=== PATIENT | female | born 1935 ===

== ENCOUNTER 2022-03-15 11:01 | Inpatient (IN) | payer MEDICARE, OTHER ==
[~2022-03-15 11:01] MED LIST: Iopamidol 370 76% 100 ML VIAL ONE
[2022-03-15] MEDS ORDERED: Iopamidol-370 76% 500 ML 1 ML ONE (11:16)
[2022-03-15 11:21] LABS: #Eosinphils 0.2 thou/uL (0.0-0.7); #Lymphocytes 1.2 thou/uL (1.20-3.40); #Monocytes 0.5 thou/uL (0.11-0.59); #Neutrophils 4.6 thou/uL (1.40-6.50); %Basophils 0.7 % (0.0-1.0); %Eosinophils 3.5 % (0.0-10.0); %Lymphocytes 18.5 % (21.0-51.0); %Monocytes 7.4 % (0.0-10.0); %Neutrophils 69.9 % (42.0-75.0); Hemoglobin 12.2 g/dL (12.0-16.0); Mean Corpuscular HGB CONC 33.3 g/dL (32.0-36.0); Mean Corpuscular Hemoglobin 32.9 pg (27.0-31.0); Mean Corpuscular Volume 98.9 fl (78.0-98.0); Mean Platelet Volume 7.5 fL (7.4-10.4); Platelet Count 188 10x3/uL (130-400); RBC Distribution Width 12.2 % (11.5-14.5); Red Blood Cell (RBC) Count 3.72 mill/uL (4.20-5.40); White Blood Cell (WBC) Count 6.6 10x3/uL (4.8-10.8)
[2022-03-15] MEDS ORDERED: Propofol 1,000 MG/100 ML VIAL IV ONE ×2 (11:25→13:52)
[2022-03-15 11:33] LABS: PTT 27.5 sec (22.9-36.1); Prothrombin Time 13.5 sec (12.0-14.7)
[2022-03-15] MEDS ORDERED: Tenecteplase 50 MG ONE (11:45)
[2022-03-15 11:49] LABS: ALT (SGPT) 40 U/L (8-55); AST (SGOT) 61 U/L (5-34); Albumin 3.6 g/dL (3.4-4.8); Alkaline Phosphatase 94 U/L (40-110); Anion Gap 15 mmol/L (10-20); BUN (Urea Nitrogen) 20 mg/dL (9.8-20.1); Bilirubin, Total 0.5 mg/dL (0.2-1.2); Calc. Creatinine Clearance 0 mL/min (70-130); Calcium 9.2 mg/dL (7.8-10.44); Carbon Dioxide 19 mmol/L (23-31); Chloride 107 mmol/L (98-107); Estimated GFR 72; Globulin 2.6 g/dL (2.4-3.5); Glucose 102 mg/dL (83-110); Potassium 3.9 mmol/L (3.5-5.1); Protein, Total 6.2 g/dL (5.8-8.1); Sodium 137 mmol/L (136-145)
[2022-03-15] MEDS ORDERED: Heparin 10,000 UNITS/ 10 ML VIAL ONE (11:49)
[2022-03-15] MEDS ORDERED: Lidocaine 1% (PF) 30 ML VIAL ONE (11:49)
[2022-03-15 11:55] LABS: Actual Bicarbonate (HCO3a) 20.5 mEq/L (22-28); Analyzer IN Cardio ER; Base Excess (BEa) -2.9 mEq/L (-2.0 to +3.0); CO2 Tension 31.7 mmHg (35.0-45.0); Calcium, Ionized (arterial) 1.21 mmol/L (1.12-1.30); Carboxyhemoglobin (COHb) 0.3 gm% (0.0-3.0); Hemoglobin (Hb) 12.3 g/dL (12.0-16.0); O2 Tension (PaO2), arterial 222.3 mmHg (> 60.0); Potassium - ABG Lab 3.36 mmol/L (3.70-5.30); pH, Arterial 7.43 (7.35-7.45)
[2022-03-15 11:59] LABS: ALV-art Gradient 94.575 mmHg (0-20); Puncture Site RRA
[2022-03-15] MEDS ORDERED: SUGAMMADEX SODIUM 200 MG/2 ML VIAL ONE (12:08)
[2022-03-15] MEDS ORDERED: fentaNYL PF 100 MCG/2 ML SYRINGE ONE (12:08)
[2022-03-15] MEDS ORDERED: ePHEDrine 50 MG/ML VIAL ONE (12:37)
[2022-03-15] MEDS ORDERED: Ondansetron PF 4 MG/2 ML Vial ONE (12:37)
[2022-03-15] MEDS ORDERED: Rocuronium Bromide 10 MG/ML (10ML VIAL) ONE (12:37)
[2022-03-15] MEDS ORDERED: Acetaminophen 325 MG TAB PO PRN (13:28)
[2022-03-15] MEDS ORDERED: Labetalol HCl 100 MG/20 ML VIAL SLOW IVP PRN (13:28)
[2022-03-15] MEDS ORDERED: niCARdipine 25 MG in Sodium Chloride 0.9% 250 ML 250 ML IVPB PRN (13:28)
[2022-03-15] MEDS ORDERED: hydrALAZINE 20 MG/ML VIAL SLOW IVP PRN (13:28)
[2022-03-15] MEDS ORDERED: Promethazine HCl 25 MG/ML VIAL IM PRN (13:47)
[2022-03-15] MEDS ORDERED: Ondansetron HCl/PF 4 MG/2 ML Vial IVP PRN (13:47)
[2022-03-15] MEDS ORDERED: Ventilator Sedation Protocol 1 EACH FS SCH ×2 (13:47→14:33)
[2022-03-15 14:21] LABS: #Basophils 0.1 thou/uL (0.0-0.2); #Eosinphils 0.1 thou/uL (0.0-0.7); #Lymphocytes 1.3 thou/uL (1.20-3.40); #Monocytes 0.7 thou/uL (0.11-0.59); #Neutrophils 10.5 thou/uL (1.40-6.50); %Basophils 0.5 % (0.0-1.0); %Lymphocytes 10.5 % (21.0-51.0); %Monocytes 5.6 % (0.0-10.0); %Neutrophils 82.4 % (42.0-75.0); Hemoglobin 10.9 g/dL (12.0-16.0); Mean Corpuscular HGB CONC 33.3 g/dL (32.0-36.0); Mean Corpuscular Hemoglobin 32.5 pg (27.0-31.0); Mean Corpuscular Volume 97.7 fl (78.0-98.0); Mean Platelet Volume 7.1 fL (7.4-10.4); Platelet Count 195 10x3/uL (130-400); RBC Distribution Width 12.3 % (11.5-14.5); Red Blood Cell (RBC) Count 3.35 mill/uL (4.20-5.40); White Blood Cell (WBC) Count 12.8 10x3/uL (4.8-10.8)
[2022-03-15] MEDS ORDERED: Electrolyte Replacement Protocol 1 EACH FS ONE (14:33)
[2022-03-15 14:41] LABS: ALT (SGPT) 39 U/L (8-55); AST (SGOT) 50 U/L (5-34); Albumin 3.2 g/dL (3.4-4.8); Alkaline Phosphatase 83 U/L (40-110); Anion Gap 11 mmol/L (10-20); BUN (Urea Nitrogen) 17 mg/dL (9.8-20.1); Bilirubin, Total 0.5 mg/dL (0.2-1.2); Calc. Creatinine Clearance 0 mL/min (70-130); Calcium 8.5 mg/dL (7.8-10.44); Carbon Dioxide 19 mmol/L (23-31); Chloride 110 mmol/L (98-107); Estimated GFR 77; Globulin 2.2 g/dL (2.4-3.5); Glucose 120 mg/dL (83-110); Potassium 3.6 mmol/L (3.5-5.1); Protein, Total 5.4 g/dL (5.8-8.1); Sodium 136 mmol/L (136-145)
[2022-03-15] MEDS ORDERED: Acetaminophen 650 MG Suppository PR PRN (16:23)
[2022-03-15] MEDS ORDERED: Ondansetron PF 4 MG/2 ML Vial IVP PRN (16:23)
[2022-03-15] MEDS: Sodium Chloride 0.9% 1,000 ML IV SCH (17:05)
[2022-03-15] MEDS ORDERED: Electrolyte Replacement Protocol FS PRN (18:30)
[2022-03-15] MEDS ORDERED: Lorazepam 2 MG/ML VIAL SLOW IVP PRN (18:30)
[2022-03-15] MEDS ORDERED: Fentanyl CADD 100 ML IV SCH (18:30)
[2022-03-15] MEDS ORDERED: Propofol BOLUS 1,000 MG/100 ML VIAL IV PRN (18:30)
[2022-03-15] MEDS ORDERED: DISCONTINUE PREVIOUS NARCOTIC PAIN MEDICATIONS AND BENZODIAZEPINES FS SCH (18:30)
[2022-03-15] MEDS ORDERED: Morphine 2 MG/ML VIAL SLOW IVP PRN (18:30)
[2022-03-15] MEDS: Propofol 1,000 MG/100 ML VIAL IV PRN (19:35)
[2022-03-15] MEDS: Atorvastatin Calcium 40 MG TAB PO SCH (21:11)
[2022-03-15] MEDS: Communication Order-Pharmacy FS SCH (21:12)
[2022-03-15 22:07] LABS: SARS-CoV-2 NAA Rapid Test Not Detected (NotDetected)
[2022-03-16] MEDS: Sodium Chloride 0.9% 1,000 ML IV SCH ×2 (02:41→15:07)
[2022-03-16 04:11] LABS: #Basophils 0.1 thou/uL (0.0-0.2); #Eosinphils 0.1 thou/uL (0.0-0.7); #Lymphocytes 1.9 thou/uL (1.20-3.40); #Neutrophils 6.6 thou/uL (1.40-6.50); %Basophils 0.7 % (0.0-1.0); %Eosinophils 0.6 % (0.0-10.0); %Lymphocytes 19.5 % (21.0-51.0); %Monocytes 10.6 % (0.0-10.0); %Neutrophils 68.6 % (42.0-75.0); Hemoglobin 9.4 g/dL (12.0-16.0); Mean Corpuscular HGB CONC 34.5 g/dL (32.0-36.0); Mean Corpuscular Hemoglobin 34.1 pg (27.0-31.0); Mean Corpuscular Volume 98.7 fl (78.0-98.0); Mean Platelet Volume 7.3 fL (7.4-10.4); Platelet Count 198 10x3/uL (130-400); RBC Distribution Width 12.2 % (11.5-14.5); Red Blood Cell (RBC) Count 2.76 mill/uL (4.20-5.40); White Blood Cell (WBC) Count 9.6 10x3/uL (4.8-10.8)
[2022-03-16 04:32] LABS: Anion Gap 10 mmol/L (10-20); BUN (Urea Nitrogen) 17 mg/dL (9.8-20.1); Calc. Creatinine Clearance 71 mL/min (70-130); Calcium 8.4 mg/dL (7.8-10.44); Carbon Dioxide 20 mmol/L (23-31); Cardiac Risk 2.6 (Less than 4.5); Chloride 111 mmol/L (98-107); Cholesterol 110 mg/dl (< 200 Desired); Estimated GFR 82; Glucose 108 mg/dL (83-110); HDL Cholesterol 42 mg/dL (>60 Neg Risk); LDL Cholesterol, Calculated 53 mg/dL; Potassium 3.6 mmol/L (3.5-5.1); Sodium 137 mmol/L (136-145); Triglycerides 76 mg/dL (Less than 150)
[2022-03-16 06:58] LABS: Actual Bicarbonate (HCO3a) 18.9 mEq/L (22-28); CO2 Tension 27.2 mmHg (35.0-45.0); Calcium, Ionized (arterial) 1.12 mmol/L (1.12-1.30); Carboxyhemoglobin (COHb) 0.3 gm% (0.0-3.0); Hemoglobin (Hb) 9.5 g/dL (12.0-16.0); O2 Tension (PaO2), arterial 136.1 mmHg (> 60.0); Potassium - ABG Lab 3.33 mmol/L (3.70-5.30); pH, Arterial 7.46 (7.35-7.45)
[2022-03-16] MEDS: Propofol 1,000 MG/100 ML VIAL IV PRN (07:25)
[2022-03-16 07:33] LABS: Puncture Site LRA
[2022-03-16] MEDS: Pantoprazole 40 MG VIAL IVP SCH (08:19)
[2022-03-16 11:23] LABS: Bacteria/HPF None Seen HPF (None Seen); Bilirubin Negative (Negative); Blood, Urine Negative (Negative); Clarity Clear (Clear); Glucose, Urine (Dipstick) Normal (Negative); Ketone, Urine Trace mg/dL (Negative); Leukocyte Negative Leu/uL (Negative); Nitrite Negative (Negative); Protein, Urine (Dipstick) 30 mg/dL (Neg-Trace); RBC/HPF 0-3 HPF (0-3); Specific Gravity, Urine 1.044 (1.002-1.036); Squamous Epithelial 0-3 HPF (0-3); Urobilinogen Normal mg/dL (Less than 2); WBC/HPF 0-3 HPF (0-3)
[2022-03-16] MEDS: Communication Order-Pharmacy FS SCH (15:07)
[2022-03-16] MEDS: Atorvastatin Calcium 40 MG TAB PO SCH (21:17)
[2022-03-16] MEDS: Aspirin 325 mg Enteric Coated Tablet PO SCH (21:17)
[2022-03-16] MEDS: Aspirin 300 MG Suppository PR SCH (21:21)
[2022-03-17] MEDS: Sodium Chloride 0.9% 1,000 ML IV SCH ×2 (03:02→16:18)
[2022-03-17 05:04] LABS: #Basophils 0.1 thou/uL (0.0-0.2); #Eosinphils 0.1 thou/uL (0.0-0.7); #Monocytes 0.7 thou/uL (0.11-0.59); #Neutrophils 4.7 thou/uL (1.40-6.50); %Basophils 0.9 % (0.0-1.0); %Eosinophils 1.5 % (0.0-10.0); %Lymphocytes 26.4 % (21.0-51.0); %Monocytes 9.2 % (0.0-10.0); Hemoglobin 7.5 g/dL (12.0-16.0); Mean Corpuscular HGB CONC 34.9 g/dL (32.0-36.0); Mean Corpuscular Hemoglobin 34.3 pg (27.0-31.0); Mean Corpuscular Volume 98.2 fl (78.0-98.0); Mean Platelet Volume 7.6 fL (7.4-10.4); Platelet Count 148 10x3/uL (130-400); RBC Distribution Width 12.3 % (11.5-14.5); White Blood Cell (WBC) Count 7.5 10x3/uL (4.8-10.8)
[2022-03-17 05:31] LABS: ALT (SGPT) 26 U/L (8-55); AST (SGOT) 26 U/L (5-34); Albumin 2.4 g/dL (3.4-4.8); Alkaline Phosphatase 68 U/L (40-110); Anion Gap 8 mmol/L (10-20); BUN (Urea Nitrogen) 11 mg/dL (9.8-20.1); Bilirubin, Total 0.5 mg/dL (0.2-1.2); Calc. Creatinine Clearance 77 mL/min (70-130); Carbon Dioxide 21 mmol/L (23-31); Chloride 112 mmol/L (98-107); Estimated GFR 85; Glucose 86 mg/dL (83-110); Potassium 3.3 mmol/L (3.5-5.1); Protein, Total 4.4 g/dL (5.8-8.1); Sodium 138 mmol/L (136-145)
[2022-03-17] MEDS ORDERED: Potassium Chloride 20 MEQ TAB PO SCH (08:00)
[2022-03-17] MEDS: Pantoprazole 40 MG VIAL IVP SCH (09:44)
[2022-03-17] MEDS ORDERED: Potassium Chloride 40 MEQ in Premix Bag 1 BAG IVPB SCH (09:45)
[2022-03-17] MEDS: Albumin 25% 25 GM/100 ML BOT IVPB SCH ×3 (10:55→23:02)
[2022-03-17] MEDS: Atorvastatin Calcium 40 MG TAB PO SCH (22:22)
[2022-03-17] MEDS: Aspirin 325 mg Enteric Coated Tablet PO SCH (22:22)
[2022-03-18] MEDS: Aspirin 300 MG Suppository PR SCH (03:15)
[2022-03-18] MEDS: Albumin 25% 25 GM/100 ML BOT IVPB SCH (05:47)
[2022-03-18] MEDS: Sodium Chloride 0.9% 1,000 ML IV SCH (05:48)
[2022-03-18 06:17] LABS: #Eosinphils 0.2 thou/uL (0.0-0.7); #Lymphocytes 1.7 thou/uL (1.20-3.40); #Monocytes 0.6 thou/uL (0.11-0.59); #Neutrophils 3.7 thou/uL (1.40-6.50); %Basophils 0.7 % (0.0-1.0); %Eosinophils 3.4 % (0.0-10.0); %Lymphocytes 27.5 % (21.0-51.0); %Monocytes 10.1 % (0.0-10.0); %Neutrophils 58.3 % (42.0-75.0); Hemoglobin 6.7 g/dL (12.0-16.0); Mean Corpuscular HGB CONC 34.3 g/dL (32.0-36.0); Mean Corpuscular Hemoglobin 33.6 pg (27.0-31.0); Mean Corpuscular Volume 97.9 fl (78.0-98.0); Mean Platelet Volume 7.3 fL (7.4-10.4); Platelet Count 138 10x3/uL (130-400); RBC Distribution Width 12.3 % (11.5-14.5); Red Blood Cell (RBC) Count 2.01 mill/uL (4.20-5.40); White Blood Cell (WBC) Count 6.3 10x3/uL (4.8-10.8)
[2022-03-18 06:36] LABS: Anion Gap 11 mmol/L (10-20); BUN (Urea Nitrogen) 11 mg/dL (9.8-20.1); Calc. Creatinine Clearance 74 mL/min (70-130); Calcium 8.7 mg/dL (7.8-10.44); Carbon Dioxide 20 mmol/L (23-31); Chloride 112 mmol/L (98-107); Estimated GFR 84; Glucose 82 mg/dL (83-110); Potassium 3.5 mmol/L (3.5-5.1); Sodium 139 mmol/L (136-145)
[2022-03-18 07:33] LABS: Iron Binding Capacity, Total 113 mcg/dL (265-497)
[2022-03-18 07:34] LABS: Iron 50 ug/dL (50-170)
[2022-03-18] MEDS: Pantoprazole 40 MG VIAL IVP SCH (09:10)
[2022-03-18] MEDS ORDERED: Docusate 100 MG CAP PO SCH (10:30)
[2022-03-18] MEDS ORDERED: PARoxetine 20 MG TAB PO SCH (10:30)
[2022-03-18] MEDS ORDERED: Metoprolol Tartrate 25 MG TAB PO SCH (10:45)
[2022-03-18] MEDS ORDERED: Electrolyte Replacement Protocol FS PRN (18:00)
[2022-03-18] MEDS: Potassium Chloride 20 MEQ in Premix Bag 1 BAG IVPB SCH ×2 (18:42→23:59)
[2022-03-18] MEDS: Atorvastatin Calcium 40 MG TAB PO SCH (21:43)
[2022-03-18] MEDS: Metoprolol Tartrate 25 MG TAB PO SCH (21:43)
[2022-03-18] MEDS: Aspirin 325 mg Enteric Coated Tablet PO SCH (21:43)
[2022-03-18] MEDS: Docusate 100 MG CAP PO SCH (21:45)
[2022-03-19 00:21] LABS: Potassium 3.7 mmol/L (3.5-5.1)
[2022-03-19] MEDS: Sodium Chloride 0.9% 1,000 ML IV SCH ×2 (03:22→17:10)
[2022-03-19 04:09] LABS: #Basophils 0.1 thou/uL (0.0-0.2); #Eosinphils 0.2 thou/uL (0.0-0.7); #Lymphocytes 1.8 thou/uL (1.20-3.40); #Monocytes 0.7 thou/uL (0.11-0.59); #Neutrophils 5.4 thou/uL (1.40-6.50); %Basophils 0.8 % (0.0-1.0); %Eosinophils 2.2 % (0.0-10.0); %Lymphocytes 22.5 % (21.0-51.0); %Monocytes 8.5 % (0.0-10.0); Hemoglobin 7.9 g/dL (12.0-16.0); Mean Corpuscular HGB CONC 33.4 g/dL (32.0-36.0); Mean Corpuscular Hemoglobin 32.1 pg (27.0-31.0); Mean Corpuscular Volume 96.1 fl (78.0-98.0); Mean Platelet Volume 7.2 fL (7.4-10.4); Platelet Count 168 10x3/uL (130-400); RBC Distribution Width 13.9 % (11.5-14.5); Red Blood Cell (RBC) Count 2.45 mill/uL (4.20-5.40); White Blood Cell (WBC) Count 8.1 10x3/uL (4.8-10.8)
[2022-03-19 04:37] LABS: Anion Gap 10 mmol/L (10-20); BUN (Urea Nitrogen) 14 mg/dL (9.8-20.1); Calc. Creatinine Clearance 72 mL/min (70-130); Calcium 8.7 mg/dL (7.8-10.44); Carbon Dioxide 20 mmol/L (23-31); Chloride 112 mmol/L (98-107); Estimated GFR 83; Glucose 116 mg/dL (83-110); Potassium 4.1 mmol/L (3.5-5.1); Sodium 138 mmol/L (136-145)
[2022-03-19] MEDS ORDERED: Losartan 25 MG TAB PO SCH (09:00)
[2022-03-19] MEDS: Losartan 25 MG TAB PO SCH (11:15)
[2022-03-19] MEDS: Pantoprazole 40 MG VIAL IVP SCH (11:15)
[2022-03-19] MEDS: Metoprolol Tartrate 25 MG TAB PO SCH ×2 (11:15→21:05)
[2022-03-19] MEDS: PARoxetine 20 MG TAB PO SCH (11:15)
[2022-03-19 13:47] VITALS: BMI 28.8
[2022-03-19] MEDS: Atorvastatin Calcium 40 MG TAB PO SCH (21:05)
[2022-03-19] MEDS: Docusate 100 MG CAP PO SCH (21:05)
[2022-03-19] MEDS: Aspirin 81 mg Enteric Coated Tablet PO SCH (21:07)
[2022-03-20 05:39] LABS: #Basophils 0.1 thou/uL (0.0-0.2); #Eosinphils 0.2 thou/uL (0.0-0.7); #Lymphocytes 2.2 thou/uL (1.20-3.40); #Monocytes 0.9 thou/uL (0.11-0.59); #Neutrophils 5.5 thou/uL (1.40-6.50); %Basophils 0.7 % (0.0-1.0); %Lymphocytes 24.7 % (21.0-51.0); %Monocytes 10.4 % (0.0-10.0); %Neutrophils 62.2 % (42.0-75.0); Hemoglobin 7.6 g/dL (12.0-16.0); Mean Corpuscular Hemoglobin 32.4 pg (27.0-31.0); Mean Corpuscular Volume 95.4 fl (78.0-98.0); Mean Platelet Volume 7.4 fL (7.4-10.4); Platelet Count 181 10x3/uL (130-400); RBC Distribution Width 13.9 % (11.5-14.5); Red Blood Cell (RBC) Count 2.34 mill/uL (4.20-5.40); White Blood Cell (WBC) Count 8.8 10x3/uL (4.8-10.8)
[2022-03-20 06:05] LABS: Anion Gap 10 mmol/L (10-20); BUN (Urea Nitrogen) 16 mg/dL (9.8-20.1); Calc. Creatinine Clearance 73 mL/min (70-130); Calcium 8.8 mg/dL (7.8-10.44); Carbon Dioxide 18 mmol/L (23-31); Chloride 112 mmol/L (98-107); Estimated GFR 84; Glucose 116 mg/dL (83-110); Potassium 3.8 mmol/L (3.5-5.1); Sodium 136 mmol/L (136-145)
[2022-03-20] MEDS ORDERED: Polyethylene Glycol 3350 17 GM Packet PO PRN (08:39)
[2022-03-20] MEDS ORDERED: Bisacodyl 10 MG SUPP PR PRN (08:40)
[2022-03-20] MEDS: Sodium Chloride 0.9% 1,000 ML IV SCH ×3 (10:59→20:07)
[2022-03-20] MEDS: Pantoprazole 40 MG VIAL IVP SCH (11:00)
[2022-03-20] MEDS: Losartan 25 MG TAB PO SCH (11:01)
[2022-03-20] MEDS: Polyethylene Glycol 3350 17 GM Packet PO SCH (11:01)
[2022-03-20] MEDS: PARoxetine 20 MG TAB PO SCH (11:01)
[2022-03-20] MEDS: Aspirin 81 mg Enteric Coated Tablet PO SCH (20:06)
[2022-03-20] MEDS: Atorvastatin Calcium 40 MG TAB PO SCH (20:06)
[2022-03-20] MEDS: Docusate 100 MG CAP PO SCH (20:06)
[2022-03-21 05:39] LABS: #Basophils 0.1 thou/uL (0.0-0.2); #Eosinphils 0.4 thou/uL (0.0-0.7); #Lymphocytes 2.5 thou/uL (1.20-3.40); #Monocytes 0.8 thou/uL (0.11-0.59); #Neutrophils 4.7 thou/uL (1.40-6.50); %Basophils 0.6 % (0.0-1.0); %Eosinophils 4.4 % (0.0-10.0); %Lymphocytes 29.3 % (21.0-51.0); %Monocytes 9.9 % (0.0-10.0); %Neutrophils 55.8 % (42.0-75.0); Hemoglobin 7.6 g/dL (12.0-16.0); Mean Corpuscular HGB CONC 34.5 g/dL (32.0-36.0); Mean Corpuscular Hemoglobin 33.4 pg (27.0-31.0); Mean Corpuscular Volume 96.5 fl (78.0-98.0); Mean Platelet Volume 7.5 fL (7.4-10.4); Platelet Count 182 10x3/uL (130-400); RBC Distribution Width 13.8 % (11.5-14.5); Red Blood Cell (RBC) Count 2.28 mill/uL (4.20-5.40); White Blood Cell (WBC) Count 8.4 10x3/uL (4.8-10.8)
[2022-03-21 05:58] LABS: Anion Gap 8 mmol/L (10-20); BUN (Urea Nitrogen) 13 mg/dL (9.8-20.1); Calc. Creatinine Clearance 67 mL/min (70-130); Calcium 8.9 mg/dL (7.8-10.44); Carbon Dioxide 23 mmol/L (23-31); Chloride 113 mmol/L (98-107); Estimated GFR 78; Glucose 106 mg/dL (83-110); Potassium 3.9 mmol/L (3.5-5.1); Sodium 140 mmol/L (136-145)
[2022-03-21] MEDS: Polyethylene Glycol 3350 17 GM Packet PO SCH (10:37)
[2022-03-21] MEDS: Pantoprazole 40 MG VIAL IVP SCH (10:37)
[2022-03-21] MEDS: Losartan 25 MG TAB PO SCH (10:38)
[2022-03-21] MEDS: PARoxetine 20 MG TAB PO SCH (10:38)
[2022-03-21] MEDS: Sodium Chloride 0.9% 1,000 ML IV SCH ×2 (10:45→21:14)
[2022-03-21] MEDS: Atorvastatin Calcium 40 MG TAB PO SCH (21:07)
[2022-03-21] MEDS: Aspirin 81 mg Enteric Coated Tablet PO SCH (21:07)
[2022-03-21] MEDS: Docusate 100 MG CAP PO SCH (21:07)
[2022-03-22 05:29] LABS: #Basophils 0.1 thou/uL (0.0-0.2); #Eosinphils 0.5 thou/uL (0.0-0.7); #Lymphocytes 2.1 thou/uL (1.20-3.40); #Monocytes 0.9 thou/uL (0.11-0.59); #Neutrophils 4.7 thou/uL (1.40-6.50); %Eosinophils 5.7 % (0.0-10.0); %Lymphocytes 25.3 % (21.0-51.0); %Monocytes 10.7 % (0.0-10.0); %Neutrophils 57.3 % (42.0-75.0); Hemoglobin 8.3 g/dL (12.0-16.0); Mean Corpuscular HGB CONC 33.3 g/dL (32.0-36.0); Mean Corpuscular Hemoglobin 32.7 pg (27.0-31.0); Mean Corpuscular Volume 98.2 fl (78.0-98.0); Mean Platelet Volume 7.4 fL (7.4-10.4); Platelet Count 207 10x3/uL (130-400); RBC Distribution Width 15.3 % (11.5-14.5); Red Blood Cell (RBC) Count 2.52 mill/uL (4.20-5.40); White Blood Cell (WBC) Count 8.1 10x3/uL (4.8-10.8)
[2022-03-22 06:05] LABS: Anion Gap 10 mmol/L (10-20); BUN (Urea Nitrogen) 10 mg/dL (9.8-20.1); Calc. Creatinine Clearance 71 mL/min (70-130); Calcium 9.1 mg/dL (7.8-10.44); Carbon Dioxide 22 mmol/L (23-31); Chloride 113 mmol/L (98-107); Estimated GFR 83; Glucose 91 mg/dL (83-110); Potassium 3.9 mmol/L (3.5-5.1); Sodium 141 mmol/L (136-145)
[2022-03-22] MEDS: Sodium Chloride 0.9% 1,000 ML IV SCH (08:55)
[2022-03-22] MEDS: Pantoprazole 40 MG VIAL IVP SCH (08:56)
[2022-03-22] MEDS: PARoxetine 20 MG TAB PO SCH (09:05)
[2022-03-22] MEDS: Losartan 25 MG TAB PO SCH (09:05)
[2022-03-22] MEDS: Polyethylene Glycol 3350 17 GM Packet PO SCH (09:05)
[2022-03-22 12:07] VITALS: BP 117/54; TEMP 98.3
== END 2022-03-22 15:05 | DRG 23 ==
LOC: ERS 11:01 → ERHOLD 12:52 → CCU 18:31 → NEURO 03-17 16:34
PROVIDERS: ADMIT Neurological Surgery; ATTEND Family Medicine
PROC: 5A1945Z Respiratory Ventilation, 24-96 Consecutive Hours (ICD-10-PCS; 2022-03-15)
PROC: 0BH17EZ Insertion of Endotracheal Airway into Trachea, Via Natural or Artificial Opening (ICD-10-PCS; 2022-03-15)
PROC: 3E03317 Introduction of Other Thrombolytic into Peripheral Vein, Percutaneous Approach (ICD-10-PCS; 2022-03-15)
PROC: 03CG3ZZ Extirpation of Matter from Intracranial Artery, Percutaneous Approach (ICD-10-PCS; principal; 2022-03-16)
PROC: 30233N1 Transfusion of Nonautologous Red Blood Cells into Peripheral Vein, Percutaneous Approach (ICD-10-PCS; 2022-03-18)
DX: I63.312 Cerebral infarction due to thrombosis of left middle cerebral artery (principal); G93.41 Metabolic encephalopathy; J96.01 Acute respiratory failure with hypoxia; G81.91 Hemiplegia, unspecified affecting right dominant side; E87.20 Acidosis, unspecified; I48.92 Unspecified atrial flutter; Z51.5 Encounter for palliative care; Z66 Do not resuscitate; I10 Essential (primary) hypertension; Z20.822 Contact with and (suspected) exposure to COVID-19; D64.9 Anemia, unspecified; H54.8 Legal blindness, as defined in USA; E78.5 Hyperlipidemia, unspecified; G93.89 Other specified disorders of brain; D72.829 Elevated white blood cell count, unspecified; E87.6 Hypokalemia; E88.09 Other disorders of plasma-protein metabolism, not elsewhere classified; R29.736 NIHSS score 36; I07.1 Rheumatic tricuspid insufficiency; I49.5 Sick sinus syndrome; I48.0 Paroxysmal atrial fibrillation; Z78.1 Physical restraint status; Z79.899 Other long term (current) drug therapy
CPT/HCPCS: 36415; 36430; 36556; 36600; 70450; 70496; 70498; 70551; 71045; 74230; 80048; 80053; 80061; 81003; 81015; 82728; 82805; 83540; 83550; 84484; 85025; 85610; 85730; 86850; 86900; 86901; 93005; 93010; 93306; 94002; 94003; 94640; 95712; 95819; 95957; 96374; C1769; C1887; C1894; C9113; J1644; J1650; J2001; J2060; J2405; J2704; J3101; J3480; J3490; J7050; J7611; P9016; P9047; Q9967; U0002

== ENCOUNTER 2022-12-06 11:32 | Inpatient (IN) | payer MEDICARE, OTHER ==
[2022-12-06 13:38] LABS: Hematocrit 41.5 % (36.0-47.0); Hemoglobin 13.9 g/dL (12.0-16.0); Mean Corpuscular HGB CONC 33.5 g/dL (32.0-36.0); Mean Corpuscular Hemoglobin 32.2 pg (27.0-31.0); Mean Corpuscular Volume 96.1 fl (78.0-98.0); Mean Platelet Volume 10.4 fL (7.4-10.4); Platelet Count 238 10x3/uL (130-400); RBC Distribution Width 13.4 % (11.5-14.5); Red Blood Cell (RBC) Count 4.32 mill/uL (4.20-5.40); White Blood Cell (WBC) Count 10.3 10x3/uL (4.8-10.8)
[2022-12-06 13:40] LABS: Delete Auto Diff?? YES; Manual Diff?? YES
[2022-12-06 14:24] LABS: Band 27 % (5-11); Burr Cells SLIGHT = 2-5 cells HPF (0-1); CellaVision Operator ID LAB.MJL; Large Platelets 2.8 % (0-5); Lymphocytes 3 % (21-51); Monocytes 9 % (0-10); Neutrophil 56 % (42-75); Platelet Adequacy Comment Platelets Normal; Poikilocytosis SLIGHT = 6-15 cells HPF (0-5); Polychromasia SLIGHT = 2-3 cells HPF (0-2); Reactive Lymphocytes 3 % (0-10); Total Cell Count 107; Vacuoles SLIGHT
[2022-12-06 14:32] LABS: Troponin I 0.028 ng/mL (< 0.028)
[2022-12-06 14:58] LABS: ALT (SGPT) 12 U/L (8-55); AST (SGOT) 20 U/L (5-34); Albumin 3.9 g/dL (3.4-4.8); Alkaline Phosphatase 95 U/L (40-110); Anion Gap 15 mmol/L (10-20); BUN (Urea Nitrogen) 20 mg/dL (9.8-20.1); Calc. Creatinine Clearance 0 mL/min (70-130); Calcium 10.4 mg/dL (7.8-10.44); Carbon Dioxide 23 mmol/L (23-31); Chloride 97 mmol/L (98-107); Estimated GFR 62; Globulin 3.2 g/dL (2.4-3.5); Glucose 92 mg/dL (83-110); Magnesium 2.1 mg/dL (1.6-2.6); Potassium 3.6 mmol/L (3.5-5.1); Protein, Total 7.1 g/dL (5.8-8.1); Sodium 131 mmol/L (136-145)
[2022-12-06] MEDS ORDERED: LevoFLOXacin 750 mg/D5W 150 ml Premix Bag ONE (15:47)
[2022-12-06] MEDS ORDERED: Acetaminophen 325 MG TAB PO PRN (16:51)
[2022-12-06] MEDS ORDERED: Bisacodyl 5 MG TAB PO PRN (16:51)
[2022-12-06] MEDS ORDERED: Sodium Chloride 0.9% 1,000 ML IV SCH (17:00)
[2022-12-06] MEDS ORDERED: Metoclopramide HCl 10 MG/2 ML VIAL IVP PRN (17:07)
[2022-12-06 17:41] VITALS: BMI 22.6
[2022-12-06 17:42] LABS: Troponin I 0.032 ng/mL (< 0.028)
[2022-12-06 20:02] LABS: Troponin I 0.028 ng/mL (< 0.028)
[2022-12-06] MEDS: Apixaban 2.5 MG TAB PO SCH (22:47)
[2022-12-06] MEDS: Atorvastatin Calcium 40 MG TAB PO SCH (22:47)
[2022-12-07] MEDS ORDERED: Nitroglycerin 0.4 MG TAB (25 Tab Bottle) SL PRN (00:10)
[2022-12-07] MEDS ORDERED: Acetaminophen 500 MG TAB PO SCH (00:15)
[2022-12-07] MEDS ORDERED: Sodium Chloride 0.9% 500 ML IV SCH ×2 (00:15→04:45)
[2022-12-07] MEDS ORDERED: Electrolyte Replacement Protocol 1 EACH FS SCH (00:15)
[2022-12-07] MEDS ORDERED: Ketorolac Tromethamine 30 MG/ML VIAL IVP SCH (01:30)
[2022-12-07 04:35] LABS: #Eosinphils 0.1 thou/uL (0.0-0.7); #Monocytes 1.1 thou/uL (0.11-0.59); #Neutrophils 6.3 thou/uL (1.40-6.50); %Basophils 0.4 % (0.0-1.0); %Eosinophils 0.7 % (0.0-10.0); %Monocytes 12.8 % (0.0-10.0); %Neutrophils 74.7 % (42.0-75.0); Hematocrit 32.6 % (36.0-47.0); Mean Corpuscular HGB CONC 33.7 g/dL (32.0-36.0); Mean Corpuscular Hemoglobin 31.7 pg (27.0-31.0); Mean Corpuscular Volume 93.9 fl (78.0-98.0); Platelet Count 209 10x3/uL (130-400); RBC Distribution Width 13.4 % (11.5-14.5); Red Blood Cell (RBC) Count 3.47 mill/uL (4.20-5.40); White Blood Cell (WBC) Count 8.5 10x3/uL (4.8-10.8)
[2022-12-07] MEDS ORDERED: Sodium Chloride 0.9% 1,000 ML IV SCH (04:45)
[2022-12-07] MEDS ORDERED: traMADol HCl 50 MG TAB PO SCH (04:45)
[2022-12-07 05:00] LABS: Anion Gap 12 mmol/L (10-20); BUN (Urea Nitrogen) 15 mg/dL (9.8-20.1); Calc. Creatinine Clearance 49 mL/min (70-130); Calcium 9.1 mg/dL (7.8-10.44); Carbon Dioxide 20 mmol/L (23-31); Chloride 103 mmol/L (98-107); Estimated GFR 65; Glucose 92 mg/dL (83-110); Potassium 3.4 mmol/L (3.5-5.1); Sodium 132 mmol/L (136-145)
[2022-12-07 05:33] LABS: ALT (SGPT) 9 U/L (8-55); AST (SGOT) 15 U/L (5-34); Albumin 2.8 g/dL (3.4-4.8); Alkaline Phosphatase 69 U/L (40-110); Anion Gap 10 mmol/L (10-20); BUN (Urea Nitrogen) 16 mg/dL (9.8-20.1); Bilirubin, Total 0.6 mg/dL (0.2-1.2); Calc. Creatinine Clearance 51 mL/min (70-130); Calcium 8.7 mg/dL (7.8-10.44); Carbon Dioxide 20 mmol/L (23-31); Chloride 104 mmol/L (98-107); Estimated GFR 67; Globulin 2.3 g/dL (2.4-3.5); Glucose 95 mg/dL (83-110); Magnesium 1.9 mg/dL (1.6-2.6); Potassium 3.4 mmol/L (3.5-5.1); Protein, Total 5.1 g/dL (5.8-8.1); Sodium 131 mmol/L (136-145)
[2022-12-07] MEDS ORDERED: Potassium Chloride 20 MEQ TAB PO SCH (08:00)
[2022-12-07] MEDS ORDERED: Magnesium 2 GM/50 ML(in water) 2 GM in Premix 1 BAG IVPB SCH (08:00)
[2022-12-07] MEDS: PARoxetine 20 MG TAB PO SCH (10:04)
[2022-12-07] MEDS: Aspirin 81 mg Enteric Coated Tablet PO SCH (10:04)
[2022-12-07] MEDS: Apixaban 2.5 MG TAB PO SCH ×2 (10:04→20:22)
[2022-12-07] MEDS: Polyethylene Glycol 3350 17 GM Packet PO SCH (10:07)
[2022-12-07] MEDS: Sodium Chloride 0.9% 1,000 ML IV SCH (15:32)
[2022-12-07] MEDS: Atorvastatin Calcium 40 MG TAB PO SCH (20:22)
[2022-12-07] MEDS: traZODone HCl 50 MG TAB PO PRN (20:22)
[2022-12-08 03:57] LABS: #Eosinphils 0.1 thou/uL (0.0-0.7); #Monocytes 0.9 thou/uL (0.11-0.59); #Neutrophils 8.2 thou/uL (1.40-6.50); %Basophils 0.3 % (0.0-1.0); %Eosinophils 1.1 % (0.0-10.0); %Lymphocytes 8.6 % (21.0-51.0); %Monocytes 9.2 % (0.0-10.0); %Neutrophils 80.5 % (42.0-75.0); Hematocrit 36.2 % (36.0-47.0); Mean Corpuscular HGB CONC 33.1 g/dL (32.0-36.0); Mean Corpuscular Hemoglobin 32.2 pg (27.0-31.0); Mean Platelet Volume 9.2 fL (7.4-10.4); Platelet Count 256 10x3/uL (130-400); RBC Distribution Width 13.8 % (11.5-14.5); Red Blood Cell (RBC) Count 3.73 mill/uL (4.20-5.40); White Blood Cell (WBC) Count 10.2 10x3/uL (4.8-10.8)
[2022-12-08 04:07] LABS: Mean Corpuscular Volume 97.1 fl (78.0-98.0)
[2022-12-08 04:17] LABS: Anion Gap 12 mmol/L (10-20); BUN (Urea Nitrogen) 12 mg/dL (9.8-20.1); Calc. Creatinine Clearance 50 mL/min (70-130); Calcium 9.6 mg/dL (7.8-10.44); Carbon Dioxide 21 mmol/L (23-31); Chloride 106 mmol/L (98-107); Estimated GFR 66; Glucose 111 mg/dL (83-110); Potassium 3.7 mmol/L (3.5-5.1); Sodium 135 mmol/L (136-145)
[2022-12-08 04:18] LABS: Troponin I 0.035 ng/mL (< 0.028)
[2022-12-08] MEDS: Sodium Chloride 0.9% 1,000 ML IV SCH ×3 (05:14→21:20)
[2022-12-08] MEDS: Apixaban 2.5 MG TAB PO SCH ×2 (09:20→19:30)
[2022-12-08] MEDS: Aspirin 81 mg Enteric Coated Tablet PO SCH (09:20)
[2022-12-08] MEDS: Bisacodyl 5 MG TAB PO SCH (09:20)
[2022-12-08] MEDS: PARoxetine 20 MG TAB PO SCH (09:21)
[2022-12-08] MEDS: Polyethylene Glycol 3350 17 GM Packet PO SCH (09:22)
[2022-12-08] MEDS ORDERED: Bisacodyl 10 MG SUPP PR SCH (13:15)
[2022-12-08] MEDS ORDERED: LevoFLOXacin 750 mg/D5W 750 MG in Premix 1 BAG IVPB SCH (17:00)
[2022-12-08 17:21] LABS: Bilirubin Negative (Negative); Blood, Urine 1+ (Negative); Clarity Turbid (Clear); Glucose, Urine (Dipstick) Normal (Negative); Ketone, Urine Trace mg/dL (Negative); Leukocyte 500 Leu/uL (Negative); Nitrite Negative (Negative); Protein, Urine (Dipstick) 30 mg/dL (Neg-Trace); Squamous Epithelial 0-3 HPF (0-3); Urobilinogen 12 mg/dL (Less than 2)
[2022-12-08 17:36] LABS: Bacteria/HPF 3+ HPF (None Seen)
[2022-12-08] MEDS: Atorvastatin Calcium 40 MG TAB PO SCH (19:30)
[2022-12-08] MEDS: traZODone HCl 50 MG TAB PO PRN (19:30)
[2022-12-09 00:59] LABS: #Eosinphils 0.1 thou/uL (0.0-0.7); #Monocytes 1.3 thou/uL (0.11-0.59); #Neutrophils 8.2 thou/uL (1.40-6.50); %Basophils 0.4 % (0.0-1.0); %Eosinophils 1.3 % (0.0-10.0); %Lymphocytes 11.9 % (21.0-51.0); %Monocytes 11.7 % (0.0-10.0); %Neutrophils 74.2 % (42.0-75.0); Hematocrit 35.1 % (36.0-47.0); Hemoglobin 11.7 g/dL (12.0-16.0); Mean Corpuscular HGB CONC 33.3 g/dL (32.0-36.0); Mean Corpuscular Hemoglobin 32.1 pg (27.0-31.0); Mean Corpuscular Volume 96.4 fl (78.0-98.0); Platelet Count 272 10x3/uL (130-400); RBC Distribution Width 13.7 % (11.5-14.5); Red Blood Cell (RBC) Count 3.64 mill/uL (4.20-5.40); White Blood Cell (WBC) Count 11.1 10x3/uL (4.8-10.8)
[2022-12-09 01:20] LABS: Anion Gap 15 mmol/L (10-20); BUN (Urea Nitrogen) 12 mg/dL (9.8-20.1); Calc. Creatinine Clearance 52 mL/min (70-130); Calcium 9.9 mg/dL (7.8-10.44); Carbon Dioxide 19 mmol/L (23-31); Chloride 108 mmol/L (98-107); Estimated GFR 69; Glucose 104 mg/dL (83-110); Magnesium 2.1 mg/dL (1.6-2.6); Potassium 3.8 mmol/L (3.5-5.1); Sodium 138 mmol/L (136-145)
[2022-12-09] MEDS ORDERED: Metoprolol Tartrate 5 MG/5 ML VIAL IVP SCH (01:45)
[2022-12-09] MEDS ORDERED: FLU VACC QS2023(65UP)/MF59C/PF 60 MCG/0.5 ML SYRINGE IM ONE (09:00)
[2022-12-09] MEDS: Apixaban 2.5 MG TAB PO SCH ×2 (09:54→21:50)
[2022-12-09] MEDS: Aspirin 81 mg Enteric Coated Tablet PO SCH (09:54)
[2022-12-09] MEDS: Bisacodyl 5 MG TAB PO SCH (09:54)
[2022-12-09] MEDS: PARoxetine 20 MG TAB PO SCH (09:55)
[2022-12-09] MEDS: Polyethylene Glycol 3350 17 GM Packet PO SCH (09:55)
[2022-12-09] MEDS: cefTRIAXone\\ROCEPHIN 1 GM in Sodium Chloride 0.9% 100 ML IVPB SCH (10:01)
[2022-12-09] MEDS: Sodium Chloride 0.9% 1,000 ML IV SCH (11:58)
[2022-12-09] MEDS ORDERED: Mineral Oil ENEMA PR SCH (15:00)
[2022-12-09] MEDS ORDERED: Methylnaltrexone 12 MG/0.6 ML VIAL SC SCH (15:00)
[2022-12-09] MEDS: Atorvastatin Calcium 40 MG TAB PO SCH (21:50)
[2022-12-10 04:35] LABS: #Basophils 0.1 thou/uL (0.0-0.2); #Eosinphils 0.2 thou/uL (0.0-0.7); %Basophils 0.6 % (0.0-1.0); %Eosinophils 2.3 % (0.0-10.0); %Lymphocytes 14.6 % (21.0-51.0); %Monocytes 11.4 % (0.0-10.0); %Neutrophils 70.6 % (42.0-75.0); Hematocrit 33.6 % (36.0-47.0); Hemoglobin 11.1 g/dL (12.0-16.0); Mean Corpuscular Hemoglobin 31.7 pg (27.0-31.0); Mean Platelet Volume 9.2 fL (7.4-10.4); Platelet Count 278 10x3/uL (130-400); RBC Distribution Width 14.2 % (11.5-14.5); White Blood Cell (WBC) Count 8.4 10x3/uL (4.8-10.8)
[2022-12-10] MEDS: PARoxetine 20 MG TAB PO SCH (08:11)
[2022-12-10] MEDS: Polyethylene Glycol 3350 17 GM Packet PO SCH (08:11)
[2022-12-10] MEDS: cefTRIAXone\\ROCEPHIN 1 GM in Sodium Chloride 0.9% 100 ML IVPB SCH (08:11)
[2022-12-10] MEDS: Bisacodyl 5 MG TAB PO SCH (08:11)
[2022-12-10] MEDS: Aspirin 81 mg Enteric Coated Tablet PO SCH (08:11)
[2022-12-10] MEDS: Apixaban 2.5 MG TAB PO SCH ×2 (08:11→21:26)
[2022-12-10] MEDS: Sodium Chloride 0.9% 1,000 ML IV SCH (18:18)
[2022-12-10] MEDS ORDERED: Mineral Oil ENEMA PR SCH (18:45)
[2022-12-10] MEDS ORDERED: Sodium Chloride 0.9% 1,000 ML IV SCH (18:45)
[2022-12-10] MEDS: Atorvastatin Calcium 40 MG TAB PO SCH (21:26)
[2022-12-11] MEDS: Apixaban 2.5 MG TAB PO SCH ×2 (10:28→21:13)
[2022-12-11] MEDS: Bisacodyl 5 MG TAB PO SCH (10:28)
[2022-12-11] MEDS: PARoxetine 20 MG TAB PO SCH (10:29)
[2022-12-11] MEDS: Aspirin 81 mg Enteric Coated Tablet PO SCH (10:29)
[2022-12-11] MEDS: cefTRIAXone\\ROCEPHIN 1 GM in Sodium Chloride 0.9% 100 ML IVPB SCH (10:29)
[2022-12-11] MEDS: Polyethylene Glycol 3350 17 GM Packet PO SCH (10:29)
[2022-12-11] MEDS: Atorvastatin Calcium 40 MG TAB PO SCH (21:13)
[2022-12-12] MEDS: Aspirin 81 mg Enteric Coated Tablet PO SCH (09:16)
[2022-12-12] MEDS: Apixaban 2.5 MG TAB PO SCH ×2 (09:16→21:33)
[2022-12-12] MEDS: PARoxetine 20 MG TAB PO SCH (09:16)
[2022-12-12] MEDS: Polyethylene Glycol 3350 17 GM Packet PO SCH (09:17)
[2022-12-12] MEDS: cefTRIAXone\\ROCEPHIN 1 GM in Sodium Chloride 0.9% 100 ML IVPB SCH (09:17)
[2022-12-12] MEDS: Bisacodyl 5 MG TAB PO SCH (09:17)
[2022-12-12] MEDS: Atorvastatin Calcium 40 MG TAB PO SCH (21:33)
[2022-12-12] MEDS: Trospium 20 MG TAB PO SCH (21:33)
[2022-12-13 04:56] LABS: #Basophils 0.1 thou/uL (0.0-0.2); #Eosinphils 0.2 thou/uL (0.0-0.7); #Monocytes 0.8 thou/uL (0.11-0.59); #Neutrophils 5.4 thou/uL (1.40-6.50); %Basophils 0.6 % (0.0-1.0); %Eosinophils 2.7 % (0.0-10.0); %Lymphocytes 21.6 % (21.0-51.0); %Monocytes 9.4 % (0.0-10.0); %Neutrophils 64.9 % (42.0-75.0); Hematocrit 34.9 % (36.0-47.0); Hemoglobin 11.6 g/dL (12.0-16.0); Mean Corpuscular HGB CONC 33.2 g/dL (32.0-36.0); Mean Corpuscular Hemoglobin 31.2 pg (27.0-31.0); Mean Corpuscular Volume 93.8 fl (78.0-98.0); Mean Platelet Volume 8.9 fL (7.4-10.4); Platelet Count 362 10x3/uL (130-400); RBC Distribution Width 13.8 % (11.5-14.5); Red Blood Cell (RBC) Count 3.72 mill/uL (4.20-5.40); White Blood Cell (WBC) Count 8.4 10x3/uL (4.8-10.8)
[2022-12-13] MEDS: cefTRIAXone\\ROCEPHIN 1 GM in Sodium Chloride 0.9% 100 ML IVPB SCH (09:42)
[2022-12-13] MEDS: Apixaban 2.5 MG TAB PO SCH ×2 (09:43→20:29)
[2022-12-13] MEDS: Trospium 20 MG TAB PO SCH ×2 (09:43→20:29)
[2022-12-13] MEDS: Aspirin 81 mg Enteric Coated Tablet PO SCH (09:43)
[2022-12-13] MEDS: Vit A,C & E/Lutein/Minerals Tablet PO SCH (09:43)
[2022-12-13] MEDS: PARoxetine 20 MG TAB PO SCH (09:43)
[2022-12-13] MEDS: Bisacodyl 5 MG TAB PO SCH (09:43)
[2022-12-13] MEDS: Polyethylene Glycol 3350 17 GM Packet PO SCH (09:43)
[2022-12-13] MEDS ORDERED: Bisacodyl 5 MG TAB PO PRN (16:04)
[2022-12-13] MEDS: Atorvastatin Calcium 40 MG TAB PO SCH (20:29)
[2022-12-14 04:28] LABS: #Basophils 0.1 thou/uL (0.0-0.2); #Eosinphils 0.3 thou/uL (0.0-0.7); #Monocytes 0.7 thou/uL (0.11-0.59); #Neutrophils 5.9 thou/uL (1.40-6.50); %Basophils 0.5 % (0.0-1.0); %Eosinophils 2.9 % (0.0-10.0); %Monocytes 8.1 % (0.0-10.0); Hematocrit 34.8 % (36.0-47.0); Hemoglobin 11.7 g/dL (12.0-16.0); Mean Corpuscular HGB CONC 33.6 g/dL (32.0-36.0); Mean Corpuscular Volume 95.1 fl (78.0-98.0); Mean Platelet Volume 8.7 fL (7.4-10.4); Platelet Count 371 10x3/uL (130-400); RBC Distribution Width 13.8 % (11.5-14.5); Red Blood Cell (RBC) Count 3.66 mill/uL (4.20-5.40); White Blood Cell (WBC) Count 9.1 10x3/uL (4.8-10.8)
[2022-12-14 04:54] LABS: Anion Gap 11 mmol/L (10-20); BUN (Urea Nitrogen) 13 mg/dL (9.8-20.1); Calc. Creatinine Clearance 63 mL/min (70-130); Calcium 9.1 mg/dL (7.8-10.44); Carbon Dioxide 24 mmol/L (23-31); Chloride 105 mmol/L (98-107); Estimated GFR 83; Glucose 96 mg/dL (83-110); Potassium 3.8 mmol/L (3.5-5.1); Sodium 136 mmol/L (136-145)
[2022-12-14 08:22] VITALS: BP 145/85; TEMP 98.1
[2022-12-14] MEDS ORDERED: Saccharomyces boulardii 250 MG CAP PO SCH (09:00)
[2022-12-14] MEDS: Vit A,C & E/Lutein/Minerals Tablet PO SCH (09:16)
[2022-12-14] MEDS: Polyethylene Glycol 3350 17 GM Packet PO SCH (09:17)
[2022-12-14] MEDS: PARoxetine 20 MG TAB PO SCH (09:17)
[2022-12-14] MEDS: Trospium 20 MG TAB PO SCH (09:17)
[2022-12-14] MEDS: Aspirin 81 mg Enteric Coated Tablet PO SCH (09:17)
[2022-12-14] MEDS: Apixaban 2.5 MG TAB PO SCH (09:17)
== END 2022-12-14 11:00 | DRG 193 ==
LOC: ERS 11:32 → 2NO 17:14
PROVIDERS: ADMIT Family Medicine; ATTEND Family Medicine
DX: J18.9 Pneumonia, unspecified organism (principal); G93.41 Metabolic encephalopathy; N39.0 Urinary tract infection, site not specified; E87.1 Hypo-osmolality and hyponatremia; I69.351 Hemiplegia and hemiparesis following cerebral infarction affecting right dominant side; I48.20 Chronic atrial fibrillation, unspecified; Z66 Do not resuscitate; F03.90 Unspecified dementia, unspecified severity, without behavioral disturbance, psychotic disturbance, mood disturbance, and anxiety; I10 Essential (primary) hypertension; I48.91 Unspecified atrial fibrillation; Z96.653 Presence of artificial knee joint, bilateral; R94.31 Abnormal electrocardiogram [ECG] [EKG]; E87.6 Hypokalemia; R53.1 Weakness; K59.00 Constipation, unspecified; I95.9 Hypotension, unspecified; N32.81 Overactive bladder; Z79.01 Long term (current) use of anticoagulants; Z98.890 Other specified postprocedural states; Z79.899 Other long term (current) drug therapy; Z79.82 Long term (current) use of aspirin
CPT/HCPCS: 36415; 36416; 71045; 74230; 80048; 80053; 81001; 83605; 83735; 83880; 84443; 84484; 85025; 93005; 93010; 93306; 96365; J0696; J1885; J1956; J3475; J3490; J7030; J7050